=== PATIENT | male | born 1960 | race Caucasian/White ===

== ENCOUNTER 2017-10-15 16:02 | Emergency (ER) | payer OTHER ==
[2017-10-15] MEDS: KETOROLAC 60 MG INJ IM (17:51)
== END 2017-10-15 18:27 | disposition home or self-care (01) ==
LOC: FTE 16:02
DX: M54.5 Low back pain (principal); I10 Essential (primary) hypertension; Z87.891 Personal history of nicotine dependence
CPT/HCPCS: 96372; 99284-25

== ENCOUNTER 2018-05-09 15:59 | Emergency (ER) | payer OTHER ==
[2018-05-10] MEDS ORDERED: MIDAZOLAM 1 MG/ML 2 ML INJ (16:22)
[2018-05-10] MEDS ORDERED: HEPARIN 1000 UNITS/ML 10 ML INJ (16:22)
[2018-05-10] MEDS ORDERED: LIDOCAINE 2%/EPI 30 ML INJ (16:22)
[2018-05-10] MEDS ORDERED: FENTAnyl 50 MCG/ML VIAL (16:22)
[2018-05-10] MEDS ORDERED: HEPARIN 1000 UNITS/NS (A-LINE) 1,000 ML (16:22)
[2018-05-10] MEDS ORDERED: LIDOCAINE 1% (MDV) 20 ML INJ (16:23)
== END 2018-05-09 18:43 | disposition home or self-care (01) ==
LOC: FTE 15:59
DX: H11.31 Conjunctival hemorrhage, right eye (principal); I10 Essential (primary) hypertension
CPT/HCPCS: 99283; Z7502